=== PATIENT | female | born 1990 | race Caucasian/White ===

== ENCOUNTER → 2016-10-03 | Outpatient (CLI) | payer MEDICAID ==
[~2016-10-03] MED LIST: ADALAT CC30 MG PO; AMOXICILLIN875 MG PO; CEPHALEXIN500 M1 PO; CLEOCIN HCL300 MG PO; LEVEMIR100 U/ML SQ; MASON NATURAL2000 IU PO; NORMODYNE200 MG PO; PRENATAL FORMU1 EAC3 PO; PRENATAL MVI PO; VITAMIN B650 MG PO; ZOFRAN ODT4 MG PO
== END ==
LOC: SUN.DIA 09:30
DX: O24.419 Gestational diabetes mellitus in pregnancy, unspecified control (principal); Z3A.18 18 weeks gestation of pregnancy; Z71.3 Dietary counseling and surveillance
CPT/HCPCS: G0108

== ENCOUNTER → 2016-10-05 | Outpatient (CLI) | payer MEDICAID | LOC: SUN.DIA 11:38 | DX: O24.414 Gestational diabetes mellitus in pregnancy, insulin controlled (principal); Z3A.14 14 weeks gestation of pregnancy ==

== ENCOUNTER → 2016-10-18 | Outpatient (CLI) | payer MEDICAID | LOC: SUN.DIA 11:00 | DX: O24.414 Gestational diabetes mellitus in pregnancy, insulin controlled (principal); Z3A.16 16 weeks gestation of pregnancy; Z71.3 Dietary counseling and surveillance | CPT/HCPCS: G0108 ==

== ENCOUNTER 2016-10-30 01:30 | Emergency (ER) | payer MEDICAID ==
[~2016-10-30] VITALS: Ht 175.3 cm; Wt 147.7 kg
[~2016-10-30 01:30] MED LIST changes: -ADALAT CC30 MG PO; -AMOXICILLIN875 MG PO; -LEVEMIR100 U/ML SQ; -NORMODYNE200 MG PO; -PRENATAL FORMU1 EAC3 PO
[2016-10-30] MEDS ORDERED: NORMODYNE200 MG PO (01:36)
[2016-10-30] MEDS ORDERED: ADALAT CC30 MG PO (01:36)
[2016-10-30] MEDS ORDERED: LEVEMIR100 U/ML SQ (01:37)
[2016-10-30 01:38] VITALS: TEMP 97.7
[2016-10-30] MEDS ORDERED: PRENATAL FORMU1 EAC3 PO (01:38)
[2016-10-30] MEDS ORDERED: AMOXICILLIN875 MG PO (02:02)
[2016-10-30 02:30] VITALS: BP 136/85; PULSE 85
== END 2016-10-30 02:55 | disposition home or self-care (01) ==
LOC: COL.ER 01:30
DX: O99.512 Diseases of the respiratory system complicating pregnancy, second trimester (principal); J32.9 Chronic sinusitis, unspecified; O99.89 Other specified diseases and conditions complicating pregnancy, childbirth and the puerperium; H66.91 Otitis media, unspecified, right ear; O13.2 Gestational [pregnancy-induced] hypertension without significant proteinuria, second trimester; O99.212 Obesity complicating pregnancy, second trimester; E66.01 Morbid (severe) obesity due to excess calories; Z3A.17 17 weeks gestation of pregnancy; Z68.42 Body mass index [BMI] 45.0-49.9, adult

== ENCOUNTER 2017-03-22 07:20 | Inpatient (IN) | payer MEDICAID ==
[~2017-03-22] VITALS: Ht 175.3 cm; Wt 151.8 kg
[~2017-03-22 07:20] MED LIST changes: +ADALAT CC30 MG PO; +AMOXICILLIN875 MG PO; +LEVEMIR100 U/ML SQ; +NORMODYNE200 MG PO; +PRENATAL FORMU1 EAC3 PO
[2017-03-24] VITALS (20 sets, daily range): BP systolic 111–160; BP diastolic 50–91; PULSE 79–103; TEMP 97.7–98.2
[2017-03-24 07:07] LABS: BASO % 0.3 % (0.0-2.0); EOS # 0.2 (0.0-0.7); EOS % 1.4 % (0-4.0); GRAN # 8.5 (1.4-6.5); GRAN % 72.2 % (42.2-75.2); HEMATOCRIT 34.5 % (37.0-47.0); LYMPH % 17.2 % (20.0-51.0); MEAN CELL VOLUME 79 fl (80.0-100.0); MEAN CORPUSCULAR HEMOGLOBIN 28 pg (27.0-31.0); MEAN CORPUSCULAR HGB CONC 35 g/dl (33.0-37.0); MEAN PLATELET VOLUME 10.7 fl (7.4-10.4); MONO % 8.4 % (1.7-9.3); PLATELET COUNT 201 K/mm3 (130-400); RED BLOOD COUNT 4.36 M/mm3 (4.10-5.30); WHITE BLOOD COUNT 11.8 K/mm3 (4.8-10.8)
[2017-03-24] MEDS ORDERED: PERCOCET 325 MG1 TA2 PO (10:32)
[2017-03-24] MEDS ORDERED: MOTRIN 800800 MG/TAB PO (10:32)
[2017-03-25 00:05] VITALS: BP 126/66; PULSE 91; TEMP 97.7
[2017-03-25 07:25] VITALS: BP 154/86; PULSE 92; TEMP 98.2
[2017-03-25 08:07] LABS: HEMATOCRIT 30.8 % (37.0-47.0); HEMOGLOBIN 10.2 g/dl (12.5-16.0)
[2017-03-25 16:00] VITALS: BP 128/88; PULSE 97; TEMP 97.7
[2017-03-25 20:45] VITALS: BP 151/75; PULSE 92; TEMP 97.8
[2017-03-26 01:00] VITALS: BP 146/71; PULSE 88; TEMP 98.3
[2017-03-26 06:50] VITALS: BP 139/83; PULSE 87; TEMP 97.6
== END 2017-03-26 12:50 | disposition home or self-care (01) | DRG 765 ==
LOC: OB 03-24 06:23 → EDSTATUS 04-07 06:31 → LDRO 04-07 07:19
PROVIDERS: Obstetrics & Gynecology
PROC: 10D00Z1 Extraction of Products of Conception, Low, Open Approach (ICD-10-PCS; principal; 2017-03-24)
DX: O34.211 Maternal care for low transverse scar from previous cesarean delivery (principal); O10.92 Unspecified pre-existing hypertension complicating childbirth; Z68.42 Body mass index [BMI] 45.0-49.9, adult; N85.8 Other specified noninflammatory disorders of uterus; O24.424 Gestational diabetes mellitus in childbirth, insulin controlled; E66.01 Morbid (severe) obesity due to excess calories; O99.214 Obesity complicating childbirth; Z3A.38 38 weeks gestation of pregnancy; Z37.0 Single live birth
CPT/HCPCS: J0690; J1815; J1885; J2250; J2270; J2370; J2405; J2590; J2765; J7030